=== PATIENT | male | born 1965 | race Native Hawaiian/Other Pacific Islander ===

== ENCOUNTER 2019-09-08 08:51 | Observation (INO) | payer BC ==
[~2019-09-08] VITALS: Ht 182.9 cm; Wt 100.8 kg
[2019-09-08 08:51] VITALS: BP 132/91; TEMP 98
[2019-09-08 09:17] LABS: PLATELET COUNT 150 K/uL (142-355)
[2019-09-08 09:19] LABS: POTASSIUM 4.2 mmol/L (3.6-5.2); SODIUM 133 mmol/L (136-145)
[2019-09-08 14:37] VITALS: BP 134/88; TEMP 98; Ht 182.9 cm; Wt 100.8 kg
[2019-09-08 16:00] VITALS: BP 117/81; TEMP 98.1
[2019-09-08 20:00] VITALS: BP 124/78; TEMP 98.7
[2019-09-09 00:16] VITALS: BP 104/64; TEMP 98.6
[2019-09-09 04:00] VITALS: BP 99/63; TEMP 98.3
[2019-09-09 05:45] LABS: PLATELET COUNT 120 K/uL (142-355)
[2019-09-09 06:21] LABS: POTASSIUM 4.4 mmol/L (3.6-5.2)
[2019-09-09 08:00] VITALS: BP 116/65; TEMP 98.2
== END 2019-09-09 11:26 | disposition home or self-care (01) ==
LOC: ED 08:51 → MED/SURG 09:50
PROVIDERS: Internal Medicine; ADMIT Emergency Medicine
DX: I47.1 Supraventricular tachycardia (principal); E83.42 Hypomagnesemia
CPT/HCPCS: 36415; 80053; 80307; 82550; 82948; 83036; 83735; 84443; 84484; 85027; 93005; 94760; 96360; 96365; 96366; 96375; 99220; 99285; G0378; J0153; J3475